=== PATIENT | female | born 1980 | race Caucasian/White ===

== ENCOUNTER 2016-08-01 02:33 | Emergency (ER) | payer OTHER ==
[2016-08-01 02:42] VITALS: BP 115/55; PULSE 82; TEMP 98.1; BMI 21.6
--- NOTE | 2016-08-01 02:44 | PDOC ---
History of Present Illness - General Chief Complaint: Rash Stated Complaint: RASH X1 MONTH Time Seen by Provider: 08/01/16 02:44 History Source: Patient Exam Limitations: No Limitations - History of Present Illness Initial Comments: 08/01/16 02:49 This is a 36-year-old female who comes in complaining of itching and burning of her external genitalia that woke her up tonight and she put some itch cream on it but it didn't help so she comes in for evaluation. Patient said this has been an ongoing problem for some time now. Patient thought initially it was a yeast infection treated with Monistat and then followed up with her OB however her OB said that she did not think it was a yeast infection and suggested that she use an anti-itch cream on it. Patient said she used an anti itching cream on it it went away and now it seems to come back. Patient said that at that time she also had testing done for STDs and other possible causes of the itching. Patient said that they were all negative. PAST MEDICAL HISTORY: As per history of present illness PAST SURGICAL HISTORY: no significant history FAMILY HISTORY: no pertinant history SOCIAL HISTORY: Pt lives with family and is employed. MEDICATIONS: reviewed ALLERGIES: As per nursing notes Review of Systems General: No fevers or chills, no weakness, no weight loss HEENT: No change in vision. No sore throat,. No ear pain CardioVascular: No chest pain or shortness of breath Respiratory:No cough, or wheezing. Gastrointestinal: no nausea, vomitting, diarrhea or constipation, No rectal bleeding Genitourinary: No dysuria, hematuria, or frequency, itching of the external genitalia Musculoskeletal: No joint or muscle pain or swelling Neurologic: No headache, vertigo, dizziness or loss of consciousness Psychiatric: nor depression Skin: No rashes or easy bruising Endocrine: no increased thirst or abnormal weight change Allergic: no skin or latex allergy All other systems reviewed and normal GENERAL: The patient is awake, alert, and fully oriented, in no acute distress. HEAD: Normal with no signs of trauma. EYES: Pupils equal, round and reactive to light, extraocular movements intact, sclera anicteric, conjunctiva clear. EXTREMITIES: Normal range of motion, no edema. : There is no vaginal discharge, there is some mild erythema and irritation of the external genitalia. There are no lesions or vesicles. NEUROLOGICAL: Normal speech, normal gait. PSYCH: Normal mood, normal affect. SKIN: Warm, Dry, normal turgor, no rashes or lesions noted. 08/01/16 02:51 Assessment and plan: It does appear that there may be a mild yeast infection of the external genitalia: I suggested the patient use some antifungal and anti- itch cream to the area that she has. I also suggested that she call her OB in the morning and follow-up with the OB as this has been a chronic ongoing problem. Past History - Past Medical History Allergies/Adverse Reactions: Allergies Allergy/AdvReac Type Severity Reaction Status Date / Time No Known Allergies Allergy Verified 12/12/15 18:27 Home Medications: Ambulatory Orders No Known Home Medication 11/04/15 Psychiatric Problems: Yes (ANXIETY) - Immunization History Td Vaccination: Yes Immunization Up to Date: Yes - Psycho/Social/Smoking Cessation Hx Anxiety: No Suicidal Ideation: No Smoking Status: No Smoking History: Never smoked Have you smoked in the past 12 months: No Number of Cigarettes Smoked Daily: 0 Information on smoking cessation initiated: No Hx Alcohol Use: No Drug/Substance Use Hx: No Substance Use Type: None *Physical Exam - Vital Signs Last Vital Signs Temp Pulse Resp BP Pulse Ox 98.1 F 82 14 115/55 99 08/01/16 02:34 08/01/16 02:34 08/01/16 02:34 08/01/16 02:34 08/01/16 02:34 *DC/Admit/Observation/Transfer Diagnosis at time of Disposition: Vagina itching - Discharge Dispostion Disposition: HOME Condition at time of disposition: Good Admit: No - Patient Instructions Additional Instructions: Try the anti-itch cream, L or antifungal cream that you have on the area. Call your OB doctor in the morning for a reevaluation of the problem. Return to the emergency department immediately with ANY new, persistent or worsening symptoms. Continue any medications as previously prescribed by your physician. You should follow up with your primary doctor as soon as possible regarding today's emergency department visit. . Please make sure your doctor reviews the results of your emergency evaluation. Thank you for coming to the Emergency Department today for your care. It was a pleasure to see you today. Please note that your evaluation is INCOMPLETE until you follow-up with your doctor.
== END 2016-08-01 03:00 | disposition home or self-care (01) ==
LOC: FER 02:33
DX: N89.8 Other specified noninflammatory disorders of vagina (principal); F41.9 Anxiety disorder, unspecified
CPT/HCPCS: 99282-25

== ENCOUNTER 2018-11-09 19:07 | Emergency (ER) | payer OTHER ==
[2018-11-09 19:22] VITALS: BP 116/75; PULSE 82; TEMP 98.5; BMI 28.3
[2018-11-09] MEDS ORDERED: KETOROLAC TROMETHAMINE 60 MG/2 ML VIAL IM ONE (19:34)
[2018-11-09] MEDS ORDERED: KETOROLAC TROMETHAMINE 60 MG/2 ML VIAL ONE (19:50)
--- NOTE | 2018-11-09 20:42 | PDOC ---
Documentation entered by Margret Talavera SCRIBE, acting as scribe for Ayah Treadwell MD. Ayah Treadwell MD: This documentation has been prepared by the Ilan kenyon Aiswarya, SCRIBE, under my direction and personally reviewed by me in its entirety. I confirm that the documentation accurately reflects all work, treatment, procedures, and medical decision making performed by me. History of Present Illness - General Chief Complaint: Back Pain Stated Complaint: BACK PAIN Time Seen by Provider: 11/09/18 19:32 History Source: Patient Exam Limitations: No Limitations - History of Present Illness Initial Comments: 11/09/18 19:49 The patient is a 38 year old female, with no significant PMH, who presents to the emergency department with neck pain secondary to a fall that occurred yesterday. The patient states she slipped and fell backwards yesterday hitting her neck. The patient states pain is located to the posterior lower cervical spine accompanied with bilateral paraspinal tenderness on palpation, no relief with Tylenol. The patient states pain is exacerbated with movement, no alleviating factors noted. Denies any numbness or tingling. Denies chest pain, shortness of breath, headache and dizziness. PAST MEDICAL HISTORY: no significant history PAST SURGICAL HISTORY: no significant history FAMILY HISTORY: no pertinent history SOCIAL HISTORY: current everyday smoker and drinks alcohol socially MEDICATIONS: reviewed ALLERGIES: As per nursing notes Adult ROS General: No fevers or chills, no weakness, no weight loss HEENT:+Neck pain No change in vision. No sore throat,. No ear pain CardioVascular: No chest pain or shortness of breath Respiratory:No cough, or wheezing. Gastrointestinal: no nausea, vomiting, diarrhea or constipation, No rectal bleeding Genitourinary: No dysuria, hematuria, or frequency Musculoskeletal: No joint or muscle pain or swelling Neurologic: No headache, vertigo, dizziness or loss of consciousness Psychiatric: nor depression Skin: No rashes or easy bruising Endocrine: no increased thirst or abnormal weight change Allergic: no skin or latex allergy All other systems reviewed and normal Basic PE GENERAL: The patient is awake, alert, and fully oriented, in no acute distress. HEAD: Normal with no signs of trauma. EYES: Pupils equal, round and reactive to light, extraocular movements intact, sclera anicteric, conjunctiva clear. EXTREMITIES: +Tenderness on palpation of lower cervical spine and bilateral paraspinal. Decrease range of motion secondary to muscle spasm. Neurovascular intact. NEUROLOGICAL: Normal speech, normal gait. PSYCH: Normal mood, normal affect. SKIN: Warm, Dry, normal turgor, no rashes or lesions noted. 11/09/18 20:39 Assessment and plan: This is a 38-year-old female who comes in complaining of the lower cervical spine pain and discomfort. Patient said she fell yesterday landing on the back of her upper back. Patient denies any neurological complaints. Patient has only taken Tylenol for the pain. Cervical spine x-rays were done and reviewed by me as negative no acute pathology. There is some loss of lordosis so patient does have some spasm of the neck. Patient discharged home with naproxen and Flexeril and given follow-up with Dr. Vincent. Past History - Past Medical History Allergies/Adverse Reactions: Allergies Allergy/AdvReac Type Severity Reaction Status Date / Time No Known Allergies Allergy Verified 11/09/18 19:10 Home Medications: Ambulatory Orders NK [No Known Home Medication] 11/09/18 COPD: No - Suicide/Smoking/Psychosocial Hx Smoking History: Current some day smoker Have you smoked in the past 12 months: Yes Information on smoking cessation initiated: Yes Hx Alcohol Use: Yes (SOCIAL) Drug/Substance Use Hx: No *Physical Exam - Vital Signs Last Vital Signs Temp Pulse Resp BP Pulse Ox 98.5 F 82 16 116/75 100 11/09/18 19:09 11/09/18 19:09 11/09/18 19:09 11/09/18 19:09 11/09/18 19:09 ED Treatment Course - ADDITIONAL ORDERS Additional order review: Laboratory Results 11/09/18 19:40 Urine HCG, Qual Negative - RADIOLOGY Radiology Studies Ordered: Category Date Time Status SPINE-CERVICAL [RAD] Stat Radiology 11/09/18 20:05 Taken - Medications Given in the ED: ED Medications Discontinued Medications Generic Name Dose Route Start Last Admin Trade Name Freq PRN Reason Stop Dose Admin Ketorolac Tromethamine 60 mg 11/09/18 19:34 11/09/18 19:57 Toradol Injection - IM 11/09/18 19:35 60 mg ONCE ONE Administration *DC/Admit/Observation/Transfer Diagnosis at time of Disposition: Acute cervical sprain Qualifiers: Encounter type: initial encounter Qualified Code(s): S13.9XXA - Sprain of joints and ligaments of unspecified parts of neck, initial encounter - Discharge Dispostion Disposition: HOME Condition at time of disposition: Good Decision to Admit order: No - Referrals Referrals: Doug Vincent MD [Staff Physician] - - Patient Instructions Additional Instructions: For the pain take naproxen 1 tablet twice a day. In addition to the naproxen take Flexeril one tablet as often as 3 times a day for muscle spasm. It will make you drowsy so limited to the nighttime hours if you need to do anything that requires her concentration. Follow-up with the orthopedist Dr. Vincent Return to the emergency department immediately with ANY new, persistent or worsening symptoms. Continue any medications as previously prescribed by your physician. You should follow up with your primary doctor as soon as possible regarding today's emergency department visit. . Please make sure your doctor reviews the results of your emergency evaluation. Thank you for coming to the Emergency Department today for your care. It was a pleasure to see you today. Please note that your evaluation is INCOMPLETE until you follow-up with your doctor. - Post Discharge Activity
== END 2018-11-09 20:49 | disposition home or self-care (01) ==
LOC: MERGE 19:07 → FER 19:07
PROC: 3E0233Z Introduction of Anti-inflammatory into Muscle, Percutaneous Approach (ICD-10-PCS; principal; 2018-11-09)
DX: S13.9XXA Sprain of joints and ligaments of unspecified parts of neck, initial encounter (principal); W18.39XA Other fall on same level, initial encounter; Y93.9 Activity, unspecified; Y92.9 Unspecified place or not applicable
CPT/HCPCS: 72050-TC-FY; 84703; 96372; 99282-25

== ENCOUNTER 2019-03-22 22:57 | Emergency (ER) | payer OTHER ==
[2019-03-22 23:06] VITALS: BP 124/76; PULSE 81; TEMP 98.3; BMI 28.3
[2019-03-22] MEDS ORDERED: LIDOCAINE 2.5%/PRILOCAINE 2.5% (5 Gram/TUBE) TP ONE (23:14)
[2019-03-23] MEDS ORDERED: IBUPROFEN 400 MG TABLET (FP) PO ONE ×2 (00:49→00:50)
--- NOTE | 2019-03-23 05:09 | PDOC ---
Documentation entered by Pauline Moraes SCRIBE, acting as scribe for Jude Cm MD. Jude Cm MD: This documentation has been prepared by the Dimitry kenyon Sammi, SCRIBE, under my direction and personally reviewed by me in its entirety. I confirm that the documentation accurately reflects all work, treatment, procedures, and medical decision making performed by me. History of Present Illness - General Chief Complaint: Pain, Acute Stated Complaint: PARANECHIA RIGHT GREAT TOE - History of Present Illness Initial Comments: 03/22/19 22:59 The patient is a year old female who presents to the emergency department for evaluation of an ingrown toenail to the right big toe. She states she was getting a pedicure last week and notes the employee cut her. She reports she has been experiencing right big toe pain since. Past History - Past Medical History Allergies/Adverse Reactions: Allergies Allergy/AdvReac Type Severity Reaction Status Date / Time No Known Allergies Allergy Verified 03/22/19 22:59 Home Medications: Ambulatory Orders NK [No Known Home Medication] 03/22/19 COPD: No Psychiatric Problems: Yes (ANXIETY) - Immunization History Td Vaccination: Yes Immunization Up to Date: Yes - Psycho Social/Smoking Cessation Hx Smoking Status: No Smoking History: Current some day smoker Have you smoked in the past 12 months: Yes Number of Cigarettes Smoked Daily: 0 'Breaking Loose' booklet given: 11/09/18 Hx Alcohol Use: Yes (SOCIAL) Drug/Substance Use Hx: No Substance Use Type: None Review of Systems - Review of Systems Comments:: 03/22/19 22:59 GENERAL/CONSTITUTIONAL: No fever or chills. No weakness. CARDIOVASCULAR: No chest pain or shortness of breath. RESPIRATORY: No cough, wheezing, or hemoptysis. GASTROINTESTINAL: No nausea, vomiting, diarrhea or constipation. GENITOURINARY: No dysuria, frequency, or change in urination. MUSCULOSKELETAL: +big toe pain +big toe ingrown toenail. No joint or muscle swelling or pain. No neck or back pain. SKIN: No rash NEUROLOGIC: No headache, vertigo, loss of consciousness, or change in strength/ sensation. *Physical Exam - Vital Signs Last Vital Signs Temp Pulse Resp BP Pulse Ox 98.3 F 81 16 124/76 100 03/22/19 23:02 03/22/19 23:02 03/22/19 23:02 03/22/19 23:02 03/22/19 23:02 - Physical Exam Comments: 03/22/19 22:59 GENERAL: Awake, alert, and fully oriented, in no acute distress LUNGS: Breath sounds equal, clear to auscultation bilaterally. No wheezes, and no crackles HEART: Regular rate and rhythm, normal S1 and S2, no murmurs, rubs or gallops ABDOMEN: Soft, nontender, normoactive bowel sounds. No guarding, no rebound. No masses EXTREMITIES: +right big toe macerated and tender along the nail bed. Normal range of motion, no edema. No clubbing or cyanosis. No cords, erythema. NEUROLOGICAL: Cranial nerves II through XII grossly intact. Normal speech, normal gait SKIN: Warm, Dry, normal turgor, no rashes or lesions noted. Medical Decision Making - Medical Decision Making 03/23/19 05:08 ingrown toenail lateral 1/4 of nail removed after regional anesthesia with 2% lidocaine Discharge - Discharge Information Problems reviewed: Yes Clinical Impression/Diagnosis: Ingrown toenail Condition: Stable Disposition: HOME - Admission No - Follow up/Referral - Patient Discharge Instructions Patient Printed Discharge Instructions: DI for Ingrown Toenail Removal - Post Discharge Activity
== END 2019-03-23 00:54 | disposition home or self-care (01) ==
LOC: FER 22:57
PROC: 0HBRXZZ Excision of Toe Nail, External Approach (ICD-10-PCS; principal; 2019-03-22)
DX: M79.674 Pain in right toe(s) (principal); L60.0 Ingrowing nail; F17.210 Nicotine dependence, cigarettes, uncomplicated; F41.9 Anxiety disorder, unspecified
CPT/HCPCS: 11750; 99281-25

== ENCOUNTER 2019-12-13 19:54 | Emergency (ER) | payer OTHER ==
[2019-12-13 20:01] VITALS: BP 130/86; PULSE 102; TEMP 98.2; BMI 26.3
[2019-12-13] MEDS ORDERED: TETRACAINE 0.5% OPHTH SOLN 2 ML BOTTLE ONE (20:40)
[2019-12-13] MEDS ORDERED: FLUORESCEIN NA 1 EA STRIP ONE (20:41)
[2019-12-13] MEDS ORDERED: AMOX TR/POT CLAV 875MG/125MG TABLETS (FP) PO ONE (20:52)
[2019-12-13] MEDS ORDERED: AMOX TR/POT CLAV 875MG/125MG TABLETS (FP) ONE (21:00)
--- NOTE | 2019-12-14 00:13 | PDOC ---
Documentation entered by Teresa Lopez SCRIBE, acting as scribe for Lisa Martines MD. Lisa Martines MD: This documentation has been prepared by the michaelibe, Teresa Lopez SCRIBE, under my direction and personally reviewed by me in its entirety. I confirm that the documentation accurately reflects all work, treatment, procedures, and medical decision making performed by me. History of Present Illness - General Chief Complaint: Eye Problem Stated Complaint: LEFT EYE SWELLING Time Seen by Provider: 12/13/19 20:04 History Source: Patient Exam Limitations: No Limitations - History of Present Illness Initial Comments: 12/13/19 20:53 The patient is a 39-year-old female with no significant past medical history who presents to the emergency department with left eye pain. The patient reports acute onset of redness and itching to the left eye on Friday, took a dose of Claritin because the patient thought it was an allergic reaction, without r elief. The patient reports the symptoms worsened Friday into Friday, associated with redness, swelling with discharge from the left eyes. Denies relief with Tylenol. The patient reports following up at [facility] Friday, where the physical exam was significant for a corneal abrasion. The patient reports she woke with the left eye completely closed, associated with left eye blurriness. Denies trauma or injury to the eyes. Denies fever or chills. Allergies: NKA PCP: None. Past History - Medical History Allergies/Adverse Reactions: Allergies Allergy/AdvReac Type Severity Reaction Status Date / Time No Known Allergies Allergy Verified 03/22/19 22:59 Home Medications: Ambulatory Orders Amoxicillin/Potassium Clav [Augmentin 875-125 Tablet] 1 each PO BID #14 tablet 12/13/19 COPD: No Psychiatric Problems: Yes (ANXIETY) - Immunization History Td Vaccination: Yes Immunization Up to Date: Yes - Psycho-Social/Smoking History Smoking Status: No Smoking History: Never smoked Have you smoked in the past 12 months: No Number of Cigarettes Smoked Daily: 0 Information on smoking cessation initiated: No 'Breaking Loose' booklet given: 11/09/18 - Substance Abuse Hx (Audit-C & DAST Scrn) How often the patient has a drink containing alcohol: Monthly or less Number of drinks the patient has on a typical day: 1 or 2 How often the patient has six or more drinks on one occasion: Never Score: In Men: 4 or > Positive; In Women: 3 or > Positive: 1 Screen Result (Pos requires Nsg. Audit-10AR): Negative In the last yr the pt used illegal drug/Rx for NonMed reason: No Score: Yes response is considered Positive: 0 Screen Result (Positive result requires Nsg. DAST-10): Negative Review of Systems - Review of Systems Able to Perform ROS?: Yes Comments:: 12/13/19 20:52 CONSTITUTIONAL: Pt denies Fever, Chills, weakness. HEENT: +left eye redness and swelling. denies vision changes, sore throat RESPIRATORY: Denies cough, sob, hemoptysis CARDIAC: denies chest pain, palpitations, lightheadedness, leg swelling ABD/GI: denies abd pain, nausea, vomiting, blood per rectum, melena, diarrhea : denies dysuria, frequency, discharge MSK: denies back pain, joint swelling SKIN: denies bruising, erythema, rash NEUROLOGICAL: denies headache, numbness, focal weakness, tingling, ataxia, weakness HEMATOLOGICAL: denies anemia, easy bruising, easy bleeding *Physical Exam - Vital Signs Last Vital Signs Temp Pulse Resp BP Pulse Ox 98.2 F 102 H 18 130/86 100 12/13/19 19:58 12/13/19 19:58 12/13/19 19:58 12/13/19 19:58 12/13/19 19:58 - Physical Exam 12/13/19 20:52 GENERAL: The patient is awake, alert, and fully oriented, in no acute distress. HEAD: Normal with no signs of trauma. EYES: Marked upper and lower eyelid edema and erythema, marked conjunctival erythema. Pupil and iris normal, pupils normal reactive and equal to the right. ENT: Ears normal, nares patent, oropharynx clear without exudates. Moist mucous membranes. Medical Decision Making - Medical Decision Making As noted above, this otherwise healthy 39-year-old woman presents with pain and swelling of her left eye over the last few days. She was seen in urgent care yesterday and corneal abrasion of the left eye was noted. She was started on topical ophthalmologic antibiotics. She presents here because since being evaluated at urgent care she has had development of swelling of the the upper and lower eyelids of the left eye. 1 drop of tetracaine ophthalmic solution applied to the left eye followed by fluorescein staining: Small area of uptake of fluorescein seen in the central area of the cornea. No extensive corneal ulceration evident. Although patient does not recall any trauma to the area and denies any recent eye make-up use, erythematous/edematous upper and lower eyelid consistent with periorbital cellulitis. The patient will be started on oral antibiotics: Augmentin 875/125 twice a day will be prescribed with the first dose given here in the emergency room. She will be referred to ophthalmology. Dr. Lott is pony roll finisher and referral information given to the patient. She should call the office in the morning and arrange for follow-up. If the patient has worsening pain/edema/fever, develops headache or worsening vision prior to seeing Dr. Lott, she should return to the emergency room Discharge - Discharge Information Problems reviewed: Yes Clinical Impression/Diagnosis: Periorbital cellulitis of left eye Condition: Stable Disposition: HOME - Additional Discharge Information Prescriptions: Amoxicillin/Potassium Clav [Augmentin 875-125 Tablet] 1 each PO BID #14 tablet - Follow up/Referral Referrals: Sindhu Lott MD [Staff Physician] - Call tomorrow - Patient Discharge Instructions Patient Printed Discharge Instructions: DI for Cellulitis -- Adult Additional Instructions: Keep head elevated as much as possible Cool compresses to left eye Continue antibiotic drops to left eye as previously prescribed Augmentin 875/125 twice a day for 1 week (take with meal) Call Dr. Lott office (eye doctor) tomorrow a.m. and arrange for follow-up within 48 hours Return to ER if you have worsening pain/redness/swelling/vision changes or you develop persistent high fever - Post Discharge Activity
== END 2019-12-13 21:30 | disposition home or self-care (01) ==
LOC: FER 19:54
DX: L03.213 Periorbital cellulitis (principal)
CPT/HCPCS: 99283-25

== ENCOUNTER 2020-06-17 14:41 | Emergency (ER) | payer OTHER ==
[2020-06-17 14:51] VITALS: BP 187/87; PULSE 62; TEMP 99.3; BMI 26.5
== END 2020-06-17 15:16 | disposition home or self-care (01) ==
LOC: FER 14:41
DX: K08.89 Other specified disorders of teeth and supporting structures (principal)
CPT/HCPCS: 99283-25

== ENCOUNTER 2020-09-24 14:22 | Emergency (ER) | payer OTHER ==
[2020-09-24] MEDS ORDERED: IBUPROFEN 600 MG TABLET (FP) PO ONE (14:30)
[2020-09-24] MEDS ORDERED: IBUPROFEN 400 MG TABLET (FP) PO ONE (14:36)
[2020-09-24 14:46] VITALS: BP 98/73; PULSE 87; TEMP 98.8; BMI 26.5
== END 2020-09-24 15:22 | disposition home or self-care (01) ==
LOC: FER 14:22
DX: M25.471 Effusion, right ankle (principal)
CPT/HCPCS: 73610-TC-RT-FY; 99283-25

== ENCOUNTER 2021-02-11 23:44 | Emergency (ER) | payer OTHER ==
[2021-02-11 23:50] VITALS: BP 153/95; PULSE 64; TEMP 98.1; BMI 26.9
[2021-02-11] MEDS ORDERED: KETOROLAC TROMETHAMINE 60 MG/2 ML VIAL IM ONE (23:51)
[2021-02-11] MEDS ORDERED: KETOROLAC TROMETHAMINE 60 MG/2 ML VIAL ONE (23:52)
== END 2021-02-12 00:10 | disposition home or self-care (01) ==
LOC: FER 23:44
PROC: 3E023GC Introduction of Other Therapeutic Substance into Muscle, Percutaneous Approach (ICD-10-PCS; principal; 2021-02-11)
DX: K08.89 Other specified disorders of teeth and supporting structures (principal)
CPT/HCPCS: 99284-25

== ENCOUNTER 2021-08-10 19:16 | Emergency (ER) | payer OTHER ==
[2021-08-10 19:26] VITALS: BP 117/70; PULSE 80; TEMP 98.9; BMI 26.9
[2021-08-10] MEDS ORDERED: valACYclovir HCL 1000 MG TABLET PO ONE (21:03)
[2021-08-10] MEDS ORDERED: valACYclovir HCL 500 MG TABLET (FP) ONE (21:14)
== END 2021-08-10 21:18 | disposition home or self-care (01) ==
LOC: FER 19:16
DX: A60.04 Herpesviral vulvovaginitis (principal)
CPT/HCPCS: 99283-25

== ENCOUNTER 2021-10-22 17:45 | Emergency (ER) | payer OTHER ==
[2021-10-22 18:01] VITALS: BP 125/75; PULSE 87; TEMP 97.9; BMI 27.4
[2021-10-22] MEDS ORDERED: ACETAMINOPHEN 500 MG TABLET (FP) PO ONE (18:19)
[2021-10-22] MEDS ORDERED: ACETAMINOPHEN 500 MG TABLET (FP) ONE (18:51)
== END 2021-10-22 19:43 | disposition home or self-care (01) ==
LOC: FER 17:45
DX: F43.0 Acute stress reaction (principal); R10.9 Unspecified abdominal pain
CPT/HCPCS: 71045-TC-FY; 93005; 99284-25